=== PATIENT | female | born 1995 | race Caucasian/White ===

== ENCOUNTER 2019-09-08 08:54 | Outpatient (CLI) | payer BC ==
--- NOTE | 2019-09-08 09:29 | RAD ---
RIGHT FOREARM 2 VIEWS: Date: 09/08/2019 HISTORY: Mid forearm pain after injury. FINDINGS: There are no signs of fracture or dislocation. IMPRESSION: Negative right forearm. POS: [facility]
== END 2019-09-08 08:55 | disposition home or self-care (01) ==
LOC: SCSRAD 08:54
PROVIDERS: ATTEND Nurse Practitioner Family
DX: M79.631 Pain in right forearm (principal)